=== PATIENT | female | born 1960 | race African-American/Black ===

== ENCOUNTER 2018-04-03 09:56 | Emergency (ER) | payer SELFPAY | END 2018-04-03 11:55 | disposition home or self-care (01) | LOC: ERS 09:56 | DX: L03.116 Cellulitis of left lower limb (principal); L25.9 Unspecified contact dermatitis, unspecified cause; F17.210 Nicotine dependence, cigarettes, uncomplicated; K21.9 Gastro-esophageal reflux disease without esophagitis; Z71.6 Tobacco abuse counseling; Z79.82 Long term (current) use of aspirin | CPT/HCPCS: 99406 ==

== ENCOUNTER 2021-03-27 12:43 | Emergency (ER) | payer SELFPAY ==
[2021-03-27] MEDS ORDERED: Ibuprofen 200 MG TAB ONE (14:19)
== END 2021-03-27 15:00 | disposition home or self-care (01) ==
LOC: ERS 12:43
DX: M79.621 Pain in right upper arm (principal); M79.622 Pain in left upper arm; K21.9 Gastro-esophageal reflux disease without esophagitis; F17.210 Nicotine dependence, cigarettes, uncomplicated
CPT/HCPCS: 99281

== ENCOUNTER 2022-09-29 22:28 | Emergency (ER) | payer SELFPAY ==
[2022-09-29 23:05] LABS: Hemoglobin 14.5 g/dL (12.0-16.0); Mean Corpuscular HGB CONC 32.5 g/dL (32.0-36.0); Mean Corpuscular Hemoglobin 33.5 pg (27.0-31.0); Mean Platelet Volume 9.1 fL (7.4-10.4); Platelet Count 180 thou/uL (130-400); RBC Distribution Width 11.6 % (11.5-14.5); Red Blood Cell (RBC) Count 4.33 mill/uL (4.20-5.40); White Blood Cell (WBC) Count 8.4 thou/uL (4.8-10.8)
[2022-09-29 23:10] LABS: INR-International Normal Ratio 0.9; PTT 32.1 sec (22.9-36.1); Prothrombin Time 12.5 sec (12.0-14.7)
[2022-09-29 23:14] LABS: ALT (SGPT) 26 U/L (8-55); AST (SGOT) 28 U/L (5-34); Albumin 4.5 g/dL (3.4-4.8); Alkaline Phosphatase 131 U/L (40-110); Anion Gap 15 mmol/L (10-20); BUN (Urea Nitrogen) 9 mg/dL (9.8-20.1); Bilirubin, Total Less than 0.2 mg/dL (0.2-1.2); CK (CPK) 103 U/L (29-168); Calc. Creatinine Clearance 0 mL/min (70-130); Calcium 9.2 mg/dL (7.8-10.44); Carbon Dioxide 24 mmol/L (23-31); Chloride 104 mmol/L (98-107); Estimated GFR 92; Globulin 3.2 g/dL (2.4-3.5); Glucose 109 mg/dL (80-115); Potassium 3.8 mmol/L (3.5-5.1); Protein, Total 7.7 g/dL (5.8-8.1); Sodium 139 mmol/L (136-145)
[2022-09-29 23:21] LABS: Alcohol 350 mg/dL (Less than 10); Salicylate Less than 8.0 mg/dL (15.0-30.0)
[2022-09-29 23:28] LABS: Eosinophils 2 % (0-10); Lymphocytes 58 % (21-51); MDiff Complete? YES; Monocytes 5 % (0-10); Neutrophil 34 % (42-75); Platelet Morphology Comment Appears Adequate; RBC Morphology Normal
[2022-09-30 00:46] LABS: Acetaminophen Less than 10.0 mcg/mL (10.0-30.0)
== END 2022-09-30 01:02 | disposition home or self-care (01) ==
LOC: ERS 22:28
DX: F10.129 Alcohol abuse with intoxication, unspecified (principal); K21.9 Gastro-esophageal reflux disease without esophagitis; F17.210 Nicotine dependence, cigarettes, uncomplicated
CPT/HCPCS: 70450; 80053; 80307; 82550; 84484; 85025; 85610; 85730; 93005; 94760